=== PATIENT | female | born 1990 | race Caucasian/White ===

== ENCOUNTER 2017-07-21 17:56 | Emergency (ER) | payer OTHER ==
[2017-07-21 18:42] LABS: BASOPHILS % (AUTO) 0.6 %; EOSINOPHILS # (AUTO) 0.1 10^3/uL (0.0-0.7); EOSINOPHILS % (AUTO) 0.8 %; HGB - HEMOGLOBIN 14.2 g/dL (12.0-16.0); LYMPHOCYTES # (AUTO) 2.4 10^3/uL (1.5-3.5); LYMPHOCYTES % (AUTO) 29.4 %; MEAN CORPUSCULAR HEMOGLOBIN 30.3 pg (27.0-31.0); MEAN CORPUSCULAR HGB CONC 33.1 g/dL (32.0-36.0); MEAN CORPUSCULAR VOLUME 91.6 fL (81.0-99.0); MEAN PLATELET VOLUME 9.3 fL (7.9-10.8); MONOCYTES # (AUTO) 0.5 10^3/uL (0.0-1.0); MONOCYTES % (AUTO) 6.7 %; NEUTROPHILS % (AUTO) 62.5 %; PLT - PLATELET COUNT 186 10^3/uL (130-450); RED BLOOD COUNT 4.68 10^6/uL (4.20-5.40); RED CELL DISTRIBUTION WIDTH 12.3 % (12.0-15.0)
[2017-07-21 18:47] LABS: BILIRUBIN,URINE NEGATIVE (NEGATIVE); GLUCOSE, URINE (UA) NEGATIVE (NEGATIVE); KETONES,URINE (UA) NEGATIVE (NEGATIVE); LEUKOCYTE ESTERASE, URINE NEGATIVE (NEGATIVE); NITRITE,URINE NEGATIVE (NEGATIVE); OCCULT BLOOD,URINE NEGATIVE (NEGATIVE); PROTEIN,URINE NEGATIVE (NEGATIVE); UROBILINOGEN,URINE 0.2 (NORMAL) E.U./dL (NORMAL)
[2017-07-21 18:53] LABS: CLARITY,URINE CLEAR (CLEAR)
[2017-07-21 18:55] LABS: ALBUMIN 4.9 g/dL (3.2-5.5); ALBUMIN/GLOBULIN RATIO 1.6 (1.0-2.2); BILIRUBIN,TOTAL 0.8 mg/dL (0.2-1.0); CALCIUM 9.6 mg/dL (8.5-10.3); CREATININE 0.8 mg/dL (0.4-1.0); TOTAL PROTEIN 7.9 g/dL (6.7-8.2)
--- NOTE | 2017-07-21 19:04 | ED Physician Documentation ---
PD HPI ABD PAIN - Stated complaint Stated Complaint: AB BLOATING/FEM - Chief complaint Chief Complaint: Abd Pain - History obtained from History obtained from: Patient - History of Present Illness Timing - onset: Other (About 6 days ago she started her menses at the normal time, normal flow. 2 days later she had intercourse and afterwards developed pelvic pain starting on the left but is kind of migratory and pinching to both sides. There is no current bleeding or fevers. No nausea. She has a specific concern about ovarian cyst because a family history but she has not had these personally.) Review of Systems Ten Systems: 10 systems reviewed and negative Constitutional: denies: Fever, Chills Throat: reports: Sore throat Cardiac: denies: Chest pain / pressure, Palpitations Respiratory: denies: Dyspnea, Cough PD PAST MEDICAL HISTORY - Past Medical History Past Medical History: No - Past Surgical History Past Surgical History: No - Present Medications Home Medications: Ambulatory Orders Medication Instructions Recorded Confirmed No Known Home Medications [No 07/21/17 07/21/17 Known Home Medications] - Allergies Allergies/Adverse Reactions: Allergies Allergy/AdvReac Type Severity Reaction Status Date / Time No Known Drug Allergies Allergy Verified 07/21/17 18:12 - Social History Does the pt smoke?: No Smoking Status: Never smoker Does the pt drink ETOH?: No ETOH Use: Beer Does the pt have substance abuse?: No - Immunizations Immunizations are current?: No - POLST Patient has POLST: No PD ED PE NORMAL - Vitals Vital signs reviewed: Yes - General General: Alert and oriented X 3, No acute distress - HEENT HEENT: Pharynx benign - Neck Neck: Supple, no meningeal sign, No bony TTP, No adenopathy - Abdomen Abdomen: Normal bowel sounds, Soft, Non tender - Neuro Neuro: Alert and oriented X 3, Normal speech - Psych Psych: Normal mood, Normal affect Results - Vitals Vitals: Vital Signs - 24 hr 07/21/17 07/21/17 07/21/17 18:08 20:59 21:01 Temperature 36.8 C Heart Rate 91 75 Respiratory 20 16 16 Rate Blood Pressure 136/97 H 127/85 H O2 Saturation 99 99 07/21/17 07/21/17 21:23 21:55 Temperature Heart Rate Respiratory 16 16 Rate Blood Pressure O2 Saturation Oxygen O2 Source Room air - Labs Labs: Laboratory Tests 07/21/17 07/21/17 07/21/17 18:23 18:30 18:37 WBC 8.0 RBC 4.68 Hgb 14.2 Hct 42.9 MCV 91.6 MCH 30.3 MCHC 33.1 RDW 12.3 Plt Count 186 MPV 9.3 Neut # 5.0 Lymph # 2.4 [place] # 0.5 Eos # 0.1 Baso # 0.0 Absolute Nucleated RBC 0.00 Nucleated RBC % 0.0 Sodium Potassium Chloride Carbon Dioxide Anion Gap BUN Creatinine Estimated GFR (MDRD) Glucose Calcium Total Bilirubin AST ALT Alkaline Phosphatase Total Protein Albumin Globulin Albumin/Globulin Ratio Lipase Urine Color YELLOW Urine Clarity CLEAR Urine pH 6.0 Ur Specific [place] 1.015 1.015 Urine Protein NEGATIVE Urine Glucose (UA) NEGATIVE Urine Ketones NEGATIVE Urine Occult Blood NEGATIVE Urine Nitrite NEGATIVE Urine Bilirubin NEGATIVE Urine Urobilinogen 0.2 (NORMAL) Ur Leukocyte Esterase NEGATIVE Ur Microscopic Review NOT INDICATED Urine Culture Comments NOT INDICATED Urine HCG, Qual NEGATIVE 07/21/17 18:37 WBC RBC Hgb Hct MCV MCH MCHC RDW Plt Count MPV Neut # Lymph # [place] # Eos # Baso # Absolute Nucleated RBC Nucleated RBC % Sodium 139 Potassium 3.8 Chloride 105 Carbon Dioxide 24 Anion Gap 10.0 BUN 13 Creatinine 0.8 Estimated GFR (MDRD) 86 L Glucose 98 Calcium 9.6 Total Bilirubin 0.8 AST 17 ALT 15 Alkaline Phosphatase 45 Total Protein 7.9 Albumin 4.9 Globulin 3.0 Albumin/Globulin Ratio 1.6 Lipase 29 Urine Color Urine Clarity Urine pH Ur Specific [place] Urine Protein Urine Glucose (UA) Urine Ketones Urine Occult Blood Urine Nitrite Urine Bilirubin Urine Urobilinogen Ur Leukocyte Esterase Ur Microscopic Review Urine Culture Comments Urine HCG, Qual - Rads (name of study) Pelvic sono Radiology: EMP read contemporaneously (Sm R ov cyst) PD MEDICAL DECISION MAKING - ED course ED course: She declines pain medications on initial evaluation. She admits her symptoms are pretty mild and after multiple conversations it turns out that she is concerned about ovarian cancer specifically after doing some Internet research. She was reassured that her workup was without evidence of this. Departure - Departure Disposition: 01 Home, Self Care Clinical Impression: Cyst of ovary Qualifiers: Laterality: right Qualified Code(s): N83.201 - Unspecified ovarian cyst, right side Condition: Good Record reviewed to determine appropriate education?: Yes Instructions: ED Cyst Ovarian Comments: Call your doctor to arrange a follow-up appointment, make the next available appointment. In the interim, return anytime if worse or if new symptoms develop. Discharge Date/Time: 07/21/17 21:56
[2017-07-21 19:05] LABS: HCG UR QUAL NEGATIVE
[2017-07-21 21:03] VITALS: BP 127/85
--- NOTE | 2017-07-21 21:20 | Ultrasound Preliminary Report ---
Exam: US PELVIC W/DOPPLER COMPLETE IMPRESSION: 1. 1.7 cm right ovarian corpus luteum or hemorrhagic cyst. No adnexal lesions. No evidence of torsion . 2. Normal uterus and endometrium. [facility] SITE ID: [id number]
--- NOTE | 2017-07-21 21:34 | Ultrasound Report ---
REVISED: REPORT ORIG. SIGNED ON 07/21/2017@2134; ORDERS LINKED ON [id number] EXAM: PELVIC ULTRASOUND EXAM DATE: 07/21/2017 08:58 PM. CLINICAL HISTORY: Pelvic pain. COMPARISON: None. TECHNIQUE: Realtime transabdominal pelvic scan performed to identify the uterus and adnexa and as an overview of other pelvic structures, followed by transvaginal scan to provide greater detail of the uterus and adnexa, with static image documentation. FINDINGS Uterus: 7.8 x 4.3 x 4.9 cm, volume 86.4 cc. Retroverted and retroflexed position. Normal overall size and echotexture. Masses: None. Endometrium: 7 mm. Normal. Cervix: Unremarkable. Right Ovary: 3.1 x 2.4 x 4.2 cm, volume 16.2 cc. Normal echotexture and blood flow. Complex 1.4 x 1.3 x 1.7 cm right ovarian cysts containing internal debris and mild peripheral flow. Left Ovary: 2.6 x 1.9 x 2.8 cm, volume 7.1 cc. Normal echotexture and blood flow. Free Fluid: None. Other: None. IMPRESSION 1. 1.7 cm right ovarian corpus luteum or hemorrhagic cyst. No adnexal lesions. No evidence of torsion. 2. Normal uterus and endometrium. [facility] Referring Provider Line: [phone] SITE ID: [id number]
== END 2017-07-21 21:56 | disposition home or self-care (01) ==
LOC: ED 17:56
DX: N83.11 Corpus luteum cyst of right ovary (principal)
CPT/HCPCS: 36415; 76830; 76856; 80053; 81001; 81003; 81025; 83690; 85025; 87086; 93975; 99283

== ENCOUNTER 2018-08-25 15:53 | Outpatient (CLI) | payer OTHER ==
--- NOTE | 2018-08-25 21:58 | Ultrasound Report ---
Reason: TEST POOSITIVE Procedure Date: 08/25/2018 Accession Number: [id number] / [id number] Procedure: US - OB First Trimester CPT Code: FULL RESULT: EXAM: FIRST TRIMESTER OBSTETRIC ULTRASOUND (Less than 11 weeks) EXAM DATE: 08/25/2018 05:40 PM. CLINICAL HISTORY: TEST POSITIVE. LMP: 07/21/2018. COMPARISONS: PELVIC NON OB W/DOPPLER 07/21/2017 8:25 PM. TECHNIQUE: Transabdominal and transvaginal ultrasound examination with static image documentation. CLINICAL DATES: EGA 5 weeks and 0 days with TOM 04/27/2019 based on last menstrual period. ASSESSMENT: Gestational Sac: Single intrauterine. Mean gestational sac diameter: 4.4 mm = less than 5 weeks. Embryo: CRL (crown-rump length) not measurable Cardiac activity: Not detectable Yolk sac: 1.9 mm. Amniotic fluid: Not accurately assessed at this gestational age. Early placenta: Not visible at this gestational age. Other: No perigestational fluid collection demonstrated. MATERNAL STRUCTURES: Uterus: Retroverted. Unremarkable. Cervix: Closed. Right Ovary/Adnexa: The ovary measures 6.0 x 2.9 x 3.2 cm, volume 29 cc. Contains a dominant, physiologic 2.3 x 1.8 x 2.1 cm simple cyst. Left Ovary/Adnexa: The ovary measures 3.4 x 2.2 x 2.6 cm, volume 10 cc. Unremarkable. Free Fluid: Small amount. Other: None. IMPRESSION: 1. Single intrauterine at EGA less than 5 weeks based on crown-rump length, which is concordant with clinical dates. 2. Assigned dating is TOM 04/27/2019 based on LMP. 3. No detectable heart rate at early gestational age. Follow-up may be obtained in 7-10 days if clinically indicated. [facility]
== END 2018-08-25 15:54 | disposition home or self-care (01) ==
LOC: DI 15:53
PROVIDERS: ATTEND Nurse Practitioner Obstetrics & Gynecology
DX: Z32.01 Encounter for pregnancy test, result positive (principal)
CPT/HCPCS: 76801; 76817

== ENCOUNTER 2018-09-08 15:49 | Outpatient (CLI) | payer OTHER ==
--- NOTE | 2018-09-09 23:31 | Ultrasound Report ---
Reason: ENCOUNTER FOR OTHER SPECIFIED SCREENING Procedure Date: 09/08/2018 Accession Number: [id number] / [id number] Procedure: US - OB First Trimester CPT Code: FULL RESULT: EXAM: FIRST TRIMESTER OBSTETRIC ULTRASOUND (Less than 11 weeks) EXAM DATE: 09/08/2018 05:41 PM. CLINICAL HISTORY: ENCOUNTER FOR OTHER SPECIFIED SCREENING. LMP: 08/25/2018. COMPARISONS: OB FIRST TRIMESTER 08/25/2018 5:02 PM. TECHNIQUE: Transabdominal and transvaginal ultrasound examination with static image documentation. CLINICAL DATES: EGA 7 weeks 0 days with TOM 04/27/2019 based on LMP. ASSESSMENT: Gestational Sac: Single intrauterine. Embryo: CRL (crown-rump length) 9 mm = 7 weeks 0 days. Cardiac activity: 144 beats per minute. Yolk sac: 3.3 mm. Amniotic fluid: Not accurately assessed at this gestational age. Early placenta: Not visible at this gestational age. Other: No perigestational fluid collection demonstrated. MATERNAL STRUCTURES: Uterus: Retroverted. Unremarkable. Cervix: Closed. Bilateral ovaries unremarkable aside from a right ovarian corpus luteal cyst. Free Fluid: None. Other: None. IMPRESSION: 1. Single viable intrauterine at EGA 7 weeks 0 days with TOM 04/27/2019 based on crown-rump length, which is concordant with clinical dates. [facility]
== END 2018-09-08 15:50 | disposition home or self-care (01) ==
LOC: DI 15:49
PROVIDERS: ATTEND Nurse Practitioner Obstetrics & Gynecology
DX: Z36.89 Encounter for other specified antenatal screening (principal)
CPT/HCPCS: 76801; 76817

== ENCOUNTER 2018-09-28 16:46 | Outpatient (CLI) | payer OTHER ==
[2018-09-28 17:30] LABS: BASOPHILS % (AUTO) 0.2 %; EOSINOPHILS # (AUTO) 0.1 10^3/uL (0.0-0.7); EOSINOPHILS % (AUTO) 0.8 %; HGB - HEMOGLOBIN 13.6 g/dL (12.0-16.0); LYMPHOCYTES # (AUTO) 2.1 10^3/uL (1.5-3.5); LYMPHOCYTES % (AUTO) 24.2 %; MEAN CORPUSCULAR HEMOGLOBIN 30.7 pg (27.0-31.0); MEAN CORPUSCULAR HGB CONC 33.5 g/dL (32.0-36.0); MEAN CORPUSCULAR VOLUME 91.6 fL (81.0-99.0); MEAN PLATELET VOLUME 10.4 fL (7.9-10.8); MONOCYTES # (AUTO) 0.6 10^3/uL (0.0-1.0); MONOCYTES % (AUTO) 6.9 %; NEUTROPHILS # (AUTO) 5.8 10^3/uL (1.5-6.6); NEUTROPHILS % (AUTO) 67.6 %; PLT - PLATELET COUNT 190 10^3/uL (130-450); RED BLOOD COUNT 4.43 10^6/uL (4.20-5.40); WHITE BLOOD COUNT 8.6 x10^3/uL (4.8-10.8)
[2018-09-29 13:15] LABS: HEPATITIS C ANTIBODY NON-REACTIVE (NON-REACTIVE)
[2018-09-29 14:01] LABS: HEPATITIS B SURFACE ANTIGEN NON-REACTIVE (NON-REACTIVE)
[2018-10-01 15:42] LABS: HIV AG/AB 4TH GEN NON-REACTIVE (NON-REACTIVE)
== END 2018-09-28 16:47 | disposition home or self-care (01) ==
LOC: LAB 16:46
PROVIDERS: ATTEND Nurse Practitioner Obstetrics & Gynecology
DX: Z36.89 Encounter for other specified antenatal screening (principal)
CPT/HCPCS: 36415; 80306; 81001; 81599; 85025; 86762; 86803; 86850; 86900; 86901; 87340; 87389

== ENCOUNTER 2018-09-28 19:11 | Outpatient (CLI) | payer OTHER ==
[2018-09-28 19:14] LABS: MUDS CUTOFF CONCENTRATIONS CUTOFF CONC BELOW:
[2018-09-28 19:39] LABS: BILIRUBIN,URINE NEGATIVE (NEGATIVE); GLUCOSE, URINE (UA) NEGATIVE (NEGATIVE); KETONES,URINE (UA) NEGATIVE (NEGATIVE); LEUKOCYTE ESTERASE, URINE NEGATIVE (NEGATIVE); NITRITE,URINE NEGATIVE (NEGATIVE); OCCULT BLOOD,URINE NEGATIVE (NEGATIVE); PROTEIN,URINE NEGATIVE (NEGATIVE); UROBILINOGEN,URINE 0.2 (NORMAL) E.U./dL (NORMAL)
[2018-09-28 19:43] LABS: CLARITY,URINE CLEAR (CLEAR)
[2018-09-28 19:59] LABS: AMPHETAMINE SCREEN,URINE NEGATIVE (NEGATIVE); BENZODIAZEPINES SCREEN, URINE NEGATIVE (NEGATIVE); COCAINE SCREEN URINE NEGATIVE (NEGATIVE); METHADONE SCREEN, URINE NEGATIVE (NEGATIVE); METHAMPHETAMINES SCREEN, URINE NEGATIVE (NEGATIVE); OPIATE SCREEN, URINE NEGATIVE (NEGATIVE); OXYCODONE SCREEN, URINE NEGATIVE (NEGATIVE); PROPOXYPHENE SCREEN, URINE NEGATIVE (NEGATIVE); TRICYCLIC ANTIDEPRESSANT,URINE NEGATIVE (NEGATIVE)
[2018-09-28 20:21] LABS: BACTERIA,URINE Many /HPF (None Seen); RBC,URINE 0-5 /HPF (0-5); SQUAMOUS EPITHELIAL CELL,UR MOD Squamous (<= Few)
== END 2018-09-28 23:59 | disposition home or self-care (01) ==
LOC: LAB.R 19:11
PROVIDERS: ATTEND Nurse Practitioner Obstetrics & Gynecology
DX: Z36.89 Encounter for other specified antenatal screening (principal)
CPT/HCPCS: 80306; 81001; 87086

== ENCOUNTER 2018-12-10 09:02 | Outpatient (CLI) | payer BC ==
--- NOTE | 2018-12-10 16:05 | Ultrasound Report ---
Reason: ENCOUNTER FOR OTHER SPECIFIED SCREENING Procedure Date: 12/10/2018 Accession Number: [id number] / [id number] Procedure: US - OB Detailed Eval CPT Code: FULL RESULT: EXAM: COMPLETE OBSTETRICAL ULTRASOUND EXAM DATE: 12/10/2018 10:15 AM. CLINICAL HISTORY: anatomic survey. COMPARISON: 09/08/2018. TECHNIQUE: Real-time sonographic evaluation of the fetus performed by the tunnel drier operator. Multiple payable representative static images were saved for review. DATING: Established EGA 20 weeks 2 days with TOM 04/27/2019 based on working due date. EGA 20 weeks 2 days with TOM 04/27/2019 based on initial ultrasound. EGA 20 weeks 5 days with TOM 04/24/2019 based on the current ultrasound. GENERAL EVALUATION Dennis . Cardiac activity: 143 bpm. movement: Visualized. Presentation: Variable Placenta: Anterior position. No evidence for previa. Umbilical cord: 3 vessel cord. Central placental cord origin. Amniotic fluid: Subjectively normal. MVP 6 cm. BIOMETRY Bi-Parietal Diameter (BPD): 4.91 cm, 20 weeks 6 days Head Circumference (HC): 18.01 cm, 20 weeks 3 days Abdominal Circumference (AC): 15.5 cm, 20 weeks 5 days Femur Length (FL): 3.42 cm, 20 weeks 5 days Estimated Weight: 341 grams, 68th percentile for 20 weeks 2 days. ANATOMY The intracranial structures, profile, face/nose/lips, spine, stomach, abdominal wall and cord insertion, diaphragm, kidneys, bladder, and extremities were visualized and demonstrate no abnormality. Suboptimal visualization of the four-chamber cardiac view and left ventricular outflow tract. MATERNAL STRUCTURES Uterus: Unremarkable. Cervix: Long and closed. Transabdominal length 4.5 cm. Right ovary/adnexa: Unremarkable. Left ovary/adnexa: Unremarkable. Free fluid: None. IMPRESSION: 1. Dennis live intrauterine with gestational age 20 weeks 2 days based on working due date. 2. Estimated weight is within expected limits for assigned dating. 3. Suboptimal visualization of the four-chamber cardiac view and left ventricular outflow tract. No anatomic abnormalities are detected at this time. [facility]
== END 2018-12-10 09:03 | disposition home or self-care (01) ==
LOC: DI 09:02
PROVIDERS: ATTEND Nurse Practitioner Obstetrics & Gynecology
DX: Z36.89 Encounter for other specified antenatal screening (principal)
CPT/HCPCS: 76811

== ENCOUNTER 2019-02-04 11:54 | Outpatient (CLI) | payer BC ==
[2019-02-04 18:39] LABS: HGB - HEMOGLOBIN 12.3 g/dL (12.0-16.0); MEAN CORPUSCULAR HEMOGLOBIN 30.5 pg (27.0-31.0); MEAN CORPUSCULAR HGB CONC 31.6 g/dL (32.0-36.0); MEAN CORPUSCULAR VOLUME 96.5 fL (81.0-99.0); MEAN PLATELET VOLUME 10.7 fL (7.9-10.8); RED BLOOD COUNT 4.03 10^6/uL (4.20-5.40); RED CELL DISTRIBUTION WIDTH 12.8 % (12.0-15.0); WHITE BLOOD COUNT 9.7 x10^3/uL (4.8-10.8)
== END 2019-02-04 23:59 | disposition home or self-care (01) ==
LOC: LAB.N 11:54
PROVIDERS: ATTEND Nurse Practitioner Obstetrics & Gynecology
DX: Z36.89 Encounter for other specified antenatal screening (principal)
CPT/HCPCS: 36415; 82950; 85027; 86850

== ENCOUNTER 2019-02-18 07:00 | Outpatient (CLI) | payer BC ==
[2019-02-18 20:57] LABS: CANDIDA GROUP DNA NEGATIVE (NEGATIVE); CANDIDA KRUSEI DNA NEGATIVE (NEGATIVE); TRICHOMONAS VAGINALIS DNA NEGATIVE (NEGATIVE)
== END 2019-02-18 23:59 | disposition home or self-care (01) ==
LOC: LAB.R 07:00
PROVIDERS: ATTEND Nurse Practitioner Obstetrics & Gynecology
DX: N76.0 Acute vaginitis (principal)
CPT/HCPCS: 87661; 87801

== ENCOUNTER 2019-04-03 09:00 | Outpatient (CLI) | payer BC ==
[2019-04-03 22:26] LABS: TRICHOMONAS VAGINALIS DNA NEGATIVE (NEGATIVE)
== END 2019-04-03 23:59 | disposition home or self-care (01) ==
LOC: LAB.R 09:00
PROVIDERS: ATTEND Nurse Practitioner Obstetrics & Gynecology
DX: Z36.85 Encounter for antenatal screening for Streptococcus B (principal)
CPT/HCPCS: 87491; 87591; 87661; 87797

== ENCOUNTER 2019-06-07 08:00 | Outpatient (CLI) | payer BC ==
[2019-06-07 20:47] LABS: CANDIDA GROUP DNA NEGATIVE (NEGATIVE); CANDIDA KRUSEI DNA NEGATIVE (NEGATIVE); TRICHOMONAS VAGINALIS DNA NEGATIVE (NEGATIVE)
== END 2019-06-07 23:59 | disposition home or self-care (01) ==
LOC: LAB.R 08:00
PROVIDERS: ATTEND Advanced Practice Midwife
DX: L29.8 Other pruritus (principal)
CPT/HCPCS: 87661; 87801

== ENCOUNTER 2021-05-20 11:58 | Outpatient (CLI) | payer BC | END 2021-05-20 11:59 | disposition home or self-care (01) | LOC: LAB.S 11:58 | PROVIDERS: ATTEND Nurse Practitioner Obstetrics & Gynecology | DX: Z36.8A Encounter for antenatal screening for other genetic defects (principal) | CPT/HCPCS: 81599; 82105 ==

== ENCOUNTER 2021-05-20 13:59 | Outpatient (CLI) | payer BC | END 2021-05-20 14:00 | disposition home or self-care (01) | LOC: LAB.N 13:59 | PROVIDERS: ATTEND Nurse Practitioner Obstetrics & Gynecology | DX: Z53.9 Procedure and treatment not carried out, unspecified reason (principal); Z33.1 Pregnant state, incidental; Z36.8A Encounter for antenatal screening for other genetic defects ==

== ENCOUNTER 2021-06-30 09:40 | Outpatient (CLI) | payer BC ==
--- NOTE | 2021-06-30 17:16 | Ultrasound Report ---
PROCEDURE: OB Detailed Eval INDICATIONS: SUPERVISION OF OUTSIDE/PRIOR DATING DATA: Last menstrual period (LMP): Unknown. First dating scan (date ): May 01, 2021; outside facility. Estimated date of delivery (TOM) from first dating scan: November 02, 2021. TECHNIQUE: Real-time scanning was performed of the fetus, with image documentation and biometric measurements. COMPARISON: None. FINDINGS: General: A single living intrauterine gestation is present. Presentation: Breech/variable Placenta: Placental position is posterior, without previa. Amniotic fluid index: 14.9 cm, appropriate for gestational age. heart rate: 136 beats per minute. Maternal cervical canal: 5.8 cm long; normal length is 2.5 cm or more. biometrics: Biparietal diameter: 5.3 cm Head circumference: 20 cm Abdominal circumference: 16.9 cm Femur length: 3.7 cm Estimated gestational age from initial scan: 22 weeks, 1 day. Composite gestational age from present scan: 22 weeks Estimated weight and percentile: 458.9 g; 31 percentile Measurement variability in biometric dating: +/- 10 days from 12-20 weeks gestation, +/- 2 weeks from 20-30 weeks gestation, +/- 3 weeks at 30 weeks gestation or later. Anatomic survey: Neuro: Ventricles are normal at less than 10 mm. Cisterna magna is normal at 3-11 mm. Cerebellum i s normal in size and morphology. Nuchal skin fold: Normal at less than 6 mm between 14 and 20 weeks gestational age. Face: Nose and lips, facial profile are normal. Spine: No evidence for spina bifida. Heart: 4-chambered heart is present, with normal ventricular outflow tracts. Diaphragm: Diaphragm is intact. Stomach: Left-sided stomach is present. Kidneys: No hydronephrosis. Normal is less than 5 mm in 2nd trimester, less than 7 mm in 3rd trimester. Cord: 3 vessel cord has orthotopic insertion. Bladder: Normal in size. Extremities: All 4 extremities are visualized. IMPRESSION: Live single intrauterine gestation as detailed above. Reviewed by: Daniel Calixto MD on 06/30/2021 5:14 PM PDT Approved by: Daniel Calixto MD on 06/30/2021 5:14 PM PDT Station ID: [id number]
== END 2021-06-30 09:41 | disposition home or self-care (01) ==
LOC: DI 09:40
PROVIDERS: ATTEND Nurse Practitioner Obstetrics & Gynecology
DX: Z34.02 Encounter for supervision of normal first pregnancy, second trimester (principal); Z36.89 Encounter for other specified antenatal screening; Z3A.22 22 weeks gestation of pregnancy

== ENCOUNTER 2021-08-19 08:00 | Outpatient (CLI) | payer BC ==
[2021-08-19 14:25] LABS: HCT - HEMATOCRIT 39.2 % (37.0-47.0); HGB - HEMOGLOBIN 12.5 g/dL (12.0-16.0); MEAN CORPUSCULAR HEMOGLOBIN 31.3 pg (27.0-31.0); MEAN CORPUSCULAR HGB CONC 31.9 g/dL (32.0-36.0); MEAN CORPUSCULAR VOLUME 98.2 fL (81.0-99.0); MEAN PLATELET VOLUME 11.4 fL (7.9-10.8); RED BLOOD COUNT 3.99 10^6/uL (4.20-5.40); WHITE BLOOD COUNT 9.1 x10^3/uL (4.8-10.8)
== END 2021-08-19 08:01 | disposition home or self-care (01) ==
LOC: LAB.S 08:00
PROVIDERS: ATTEND Nurse Practitioner Obstetrics & Gynecology
DX: Z36.9 Encounter for antenatal screening, unspecified (principal)
CPT/HCPCS: 36415; 82950; 85027